=== PATIENT | female | born 1985 | race Caucasian/White ===

== ENCOUNTER 2018-11-14 16:59 | Emergency (ER) | payer OTHER ==
[2018-11-14 17:38] VITALS: BP 113/77
[2018-11-14] MEDS ORDERED: Fluconazole 100 MG TAB* TAB PO ONE (17:47)
--- NOTE | 2018-11-14 17:51 | UC ---
Complaint Female HPI - HPI Summary HPI Summary: 32-year-old female presents with 1 week worth of thick, white and itchy vaginal discharge that she relates as a yeast infection. She states that she has had yeast infections in the past before and it feels like that. She has not been on any antibiotics recently and reports only dysuria at the end of urination. She denies possibility of given that she is on the Mirena IUD and states that there is no possibility of sexually transmitted infections. She has refused testing. She denies any back pain, abdominal pain or fever. - History Of Current Complaint Chief Complaint: [facility] Stated Complaint: POSSIBLE YEAST INFECTION Time Seen by Provider: 11/14/18 17:40 Hx Obtained From: Patient Hx Last Menstrual Period: iud Pain Intensity: 0 - Allergies/Home Medications Allergies/Adverse Reactions: Allergies Allergy/AdvReac Type Severity Reaction Status Date / Time amoxicillin [From Augmentin] Allergy Rash Verified 11/14/18 17:28 cefaclor [From Ceclor] Allergy Rash Verified 11/14/18 17:28 cefuroxime [From Ceftin] Allergy Rash Verified 11/14/18 17:28 clavulanic acid Allergy Rash Verified 11/14/18 17:28 [From Augmentin] Home Medications: Home Medications ALPRAZolam TAB* [Xanax TAB*] 0.5 mg PO TID PRN 11/14/18 [History Confirmed 11/14] Horizant 1 tab PO BEDTIME 11/14/18 [History] Methylphenidate HCl [Concerta] 36 mg PO DAILY 11/14/18 [History Confirmed ] PMH/Surg Hx/FS Hx/Imm Hx Neurological History: Other - Narcolepsy, POTS Psychological History: Anxiety, Bipolar Disorder - Surgical History Surgical History: None - Family History Known Family History: Positive: Non-Contributory - Social History Lives: With Family Alcohol Use: Occasionally Substance Use Type: None Smoking Status (MU): Light Every Day Tobacco Smoker Amount Used/How Often: 1/2 ppd Length of Time of Smoking/Using Tobacco: 5 YEARS Have You Smoked in the Last Year: Yes Household Exposure Type: Cigarettes - Immunization History Most Recent Influenza Vaccination: 0ctober 2915 Review of Systems All Other Systems Reviewed And Are Negative: Yes Constitutional: Negative: Fever Skin: Negative: Rash Respiratory: Positive: Negative Cardiovascular: Positive: Negative Gastrointestinal: Negative: Abdominal Pain, Vomiting Genitourinary: Positive: Dysuria, Vaginal/Penile Discharge. Negative: Hematuria , Frequency, Urgency Neurovascular: Positive: Negative Physical Exam Triage Information Reviewed: Yes Appearance: Well-Appearing, No Pain Distress Vital Signs: Initial Vital Signs Temp 98.9 F 11/14/18 17:34 Pulse 98 11/14/18 17:34 Resp 18 11/14/18 17:34 BP 113/77 11/14/18 17:34 Pulse Ox 100 11/14/18 17:34 Eye Exam: Normal ENT: Positive: Normal ENT inspection Neck: Positive: Supple Respiratory: Positive: Lungs clear Cardiovascular: Positive: RRR Abdomen Description: Positive: Nontender, Soft Pelvic Exam: Positive: Other - Deferred Musculoskeletal Exam: Normal Psychological Exam: Normal Complaint Female Dx - Course Course Of Treatment: Lab Results 11/14/18 Range/Units 17:49 POC Urine Color Yellow POC Urine Clarity Cloudy POC Urine pH 8.5 (5-9) POC Ur Specif [place] 1.015 (1.010-1.030) POC Urine Protein Negative (Negative) POC Ur Glucose (UA) Negative (Negative) POC Urine Ketones Negative (Negative) POC Urine Blood Negative (Negative) POC Urine Nitrite Positive A (Negative) POC Urine Bilirubin Negative (Negative) POC Urine Urobilinogen 0.2 (Negative) POC U Leukocyte Esteras 1+ A (Negative) Patient with mild dysuria and thick white discharge vaginally. UA indicated above shows positive nitrate and leukocyte esterase. This will be sent for culture. She was given Diflucan here and will be started on Macrobid with a second Diflucan tablet to follow. She'll follow-up with her primary care physician. - Differential Dx/Diagnosis Differential Diagnosis/HQI/PQRI: Pelvic Inflammatory Disease, Sexually Transmitted Disease, Urinary Tract Infection, Other - Vaginal yeast infection Provider Diagnosis: Vaginal candidiasis, Acute urinary tract infection Discharge - Sign-Out/Discharge Documenting (check all that apply): Patient Departure All imaging exams completed and their final reports reviewed: No Studies - Discharge Plan Condition: Improved Disposition: HOME Prescriptions: Fluconazole 150 MG TAB* [Diflucan 150 MG TAB*] 150 mg PO ONCE #1 tablet Nitrofurantoin Monohyd/M-Cryst [Macrobid 100 mg Capsule] 100 mg PO BID #14 cap Patient Education Materials: Urinary Tract Infection in Women (ED), Yeast Infection (ED) Referrals: Kaila Santos MD [Primary Care Provider] - Additional Instructions: Drink plenty of fluids, cranberry juice may help. Tylenol as needed for discomfort. Return with fever, abdominal pain, worse, new symptoms or other concerns. A second Diflucan tablet was prescribed and can be taken after antibiotic. - Billing Disposition and Condition Condition: IMPROVED Disposition: Home
--- NOTE | 2018-11-16 16:05 | UC ---
- Progress Note Progress Note: 11/16/2018 Urine culture positive for E.Coli Pt Rx Macrobid PO which covers it Still pending final sensitivity report No change Shameka Suarez PA-C Course/Dx - Diagnoses Provider Diagnoses: Vaginal candidiasis, Acute urinary tract infection Discharge - Sign-Out/Discharge Documenting (check all that apply): Post-Discharge Follow Up All imaging exams completed and their final reports reviewed: No Studies - Discharge Plan Condition: Improved Disposition: HOME Prescriptions: Fluconazole 150 MG TAB* [Diflucan 150 MG TAB*] 150 mg PO ONCE #1 tablet Nitrofurantoin Monohyd/M-Cryst [Macrobid 100 mg Capsule] 100 mg PO BID #14 cap Patient Education Materials: Urinary Tract Infection in Women (ED), Yeast Infection (ED) Referrals: Kaila Santos MD [Primary Care Provider] - Additional Instructions: Drink plenty of fluids, cranberry juice may help. Tylenol as needed for discomfort. Return with fever, abdominal pain, worse, new symptoms or other concerns. A second Diflucan tablet was prescribed and can be taken after antibiotic. - Billing Disposition and Condition Condition: IMPROVED Disposition: Home
--- NOTE | 2018-11-17 17:35 | UC ---
- Progress Note Progress Note: Urine culture final reports: Escherichia coli more than 100,000 CFU per mL Patient is already on Macrobid Escherichia coli sensitive to Macrobid No change in plan Course/Dx - Diagnoses Provider Diagnoses: Vaginal candidiasis, Acute urinary tract infection Discharge - Sign-Out/Discharge Documenting (check all that apply): Post-Discharge Follow Up All imaging exams completed and their final reports reviewed: No Studies - Discharge Plan Condition: Improved Disposition: HOME Prescriptions: Fluconazole 150 MG TAB* [Diflucan 150 MG TAB*] 150 mg PO ONCE #1 tablet Nitrofurantoin Monohyd/M-Cryst [Macrobid 100 mg Capsule] 100 mg PO BID #14 cap Patient Education Materials: Urinary Tract Infection in Women (ED), Yeast Infection (ED) Referrals: Kaila Santos MD [Primary Care Provider] - Additional Instructions: Drink plenty of fluids, cranberry juice may help. Tylenol as needed for discomfort. Return with fever, abdominal pain, worse, new symptoms or other concerns. A second Diflucan tablet was prescribed and can be taken after antibiotic. - Billing Disposition and Condition Condition: IMPROVED Disposition: Home
== END 2018-11-14 18:10 | disposition home or self-care (01) ==
LOC: UCEAST 16:59
DX: B37.3 Candidiasis of vulva and vagina (principal); N39.0 Urinary tract infection, site not specified; B96.20 Unspecified Escherichia coli [E. coli] as the cause of diseases classified elsewhere; Z88.0 Allergy status to penicillin; Z88.1 Allergy status to other antibiotic agents; G47.419 Narcolepsy without cataplexy; F41.9 Anxiety disorder, unspecified; F31.9 Bipolar disorder, unspecified; F17.210 Nicotine dependence, cigarettes, uncomplicated
CPT/HCPCS: 81003; 87077; 87086; 87186; 99202; A9270-GY; G0463